=== PATIENT | male | born 1960 | race Caucasian/White ===

== ENCOUNTER 2017-08-27 18:59 | Emergency (ER) | payer BC ==
[2017-08-27 19:17] VITALS: BP 129/91; PULSE 77; TEMP 98.2; BMI 23.1
[2017-08-27] MEDS ORDERED: DIPHTH,PERTUSS(ACELL),TET 0.5 ML DISP.SYRIN IM ONE (20:34)
[2017-08-27] MEDS ORDERED: LIDOCAINE HCL 1%, 10 MG/ML (50 mL VIAL) SQ ONE (20:42)
[2017-08-27] MEDS ORDERED: LIDOCAINE HCL 1%, 10 MG/ML (20ML VIAL) ONE (20:50)
--- NOTE | 2017-08-27 20:51 | PDOC ---
History of Present Illness - General Chief Complaint: Wound Infection Stated Complaint: RIGHT INDEX FINGER INFECTION Time Seen by Provider: 08/27/17 19:26 - History of Present Illness Initial Comments: 08/27/17 20:47 "The patient is a 56 year old male, with a significant past medical history of HLD, [place] s/p cardiac stents (2012) and HTN, who presents to the emergency department with right index finger pain and swelling. He reports that he thought he felt a splinter go into his right index finger 4 days ago. He reports he tried to dig it out with tweezers but did not find it. He subsequently applied neosporin to the area. He notes that 2 days after that he noticed a pressure like feeling on his right index finger and swelling. He denies any drainage from the site. Pt works as a refund specialist. The patient denies chest pain, shortness of breath, headache and dizziness. Denies fever, chills, nausea, vomit, diarrhea and constipation. Allergies: None Past surgical history: Cardiac Stents Social history: No alcohol, tobacco or drug use reported " Past History - Past Medical History Allergies/Adverse Reactions: Allergies Allergy/AdvReac Type Severity Reaction Status Date / Time No Known Allergies Allergy Verified 08/27/17 19:00 Home Medications: Ambulatory Orders Aspirin 81 mg PO DAILY 02/10/13 Metoprolol Succinate [Toprol XL -] 25 mg PO DAILY 02/10/13 Alprazolam [Xanax] 0.25 mg PO PRN PRN 08/27/17 Rosuvastatin Calcium [Crestor] 40 mg PO DAILY 08/27/17 Sulfamethoxazole/Trimethoprim [Bactrim Ds Tablet] 1 each PO BID 7 Days #14 tablet 08/27/17 Cardiac Disorders: Yes (NC) COPD: No HTN: Yes Hypercholesterolemia: Yes - Surgical History Cardiac Surgery: Yes (STENT) - Family Disease History Family Disease History: Heart Disease: Mother - Suicide/Smoking/Psychosocial Hx Smoking Status: No Smoking History: Never smoked Have you smoked in the past 12 months: No Number of Cigarettes Smoked Daily: 0 Information on smoking cessation initiated: No Hx Alcohol Use: Yes (SOCIAL) Drug/Substance Use Hx: No Substance Use Type: Alcohol Hx Substance Use Treatment: No Review of Systems - Review of Systems Comments:: 08/27/17 20:49 "GENERAL/CONSTITUTIONAL: No fever. No weakness. HEAD, EYES, EARS, NOSE AND THROAT: No change in vision. No ear pain or discharge. No sore throat. CARDIOVASCULAR: No chest pain or shortness of breath. RESPIRATORY: No cough, wheezing, or hemoptysis. GASTROINTESTINAL: No nausea, vomiting, diarrhea or constipation. GENITOURINARY: No dysuria, frequency, or change in urination. MUSCULOSKELETAL: No joint or muscle swelling or pain. No neck or back pain. SKIN: (+) Right index finger pain and swelling. No rash NEUROLOGIC: No headache, vertigo, loss of consciousness, or change in strength/ sensation. ENDOCRINE: No increased thirst. No abnormal weight change. HEMATOLOGIC/LYMPHATIC: No anemia, easy bleeding, or history of blood clots. ALLERGIC/IMMUNOLOGIC: No hives or skin allergy." *Physical Exam - Vital Signs Last Vital Signs Temp Pulse Resp BP Pulse Ox 98.2 F 77 16 129/91 98 08/27/17 19:00 08/27/17 19:00 08/27/17 19:00 08/27/17 19:00 08/27/17 19:00 - Physical Exam Comments: 08/27/17 20:49 "GENERAL: Awake, alert, and fully oriented, in no acute distress HEAD: No signs of trauma EYES: PERRLA, EOMI, sclera anicteric, conjunctiva clear ENT: Auricles normal inspection, hearing grossly normal, nares patent, oropharynx clear without exudates. Moist mucosa NECK: Nontender, no stepoffs, Normal ROM, supple, no lymphadenopathy, JVD, or masses LUNGS: Breath sounds equal, clear to auscultation bilaterally. No wheezes, and no crackles HEART: Regular rate and rhythm, normal S1 and S2, no murmurs, rubs or gallops ABDOMEN: Soft, nontender, normoactive bowel sounds. No guarding, no rebound. No masses EXTREMITIES: R index finger with swelling over distal phalanx, small puncture wound over pad of fingertip with no fluctuance, + paronychia over dorsal aspect of finger with no active drainage, no tenderness over flexor tendons, no pain with passive extension or flexion, no sausage digit NEUROLOGICAL: Cranial nerves II through XII intact. 5/5 strength and sensation in all extremities, Normal speech, normal gait SKIN: Warm, Dry, normal turgor, no rashes or lesions noted. " Procedures - Incision and Drainage I&D Site: Right: Other (index finger) Betadine cleansed: Yes Anesthesia: 1% Lidocaine Blade Size: 11 Dressing: Yes Progress: 08/27/17 22:11 R index finger paronychia drained with 3cc of pus expressed ED Treatment Course - RADIOLOGY Radiology Studies Ordered: Category Date Time Status FINGER(S) RIGHT [RAD] Stat Radiology 08/27/17 20:33 Ordered Medical Decision Making - Medical Decision Making 08/27/17 20:50 56 M with R index finger paronychia. Will require I&D. Also possible foreign body. - XR to r/o FB - I&D - Tdap - Abx - F/u ortho hand 08/27/17 22:12 XR with no FB visualized on my read. Paronychia drained, with 3cc of purulent fluid expressed Tdap administered Pt started on Bactrim (has ? history of MRSA in the past) Pt to f/u with hand within 48 hours or return to ER for wound check. I discussed the physical exam findings, ancillary test results and final diagnoses with the patient. I answered all of the patient's questions. The patient was satisfied with the care received and felt comfortable with the discharge plan and treatment plan. The patient agrees to follow up with the primary care physician, ortho, or return to ER within 48-72 hours. *DC/Admit/Observation/Transfer Diagnosis at time of Disposition: Paronychia - Discharge Dispostion Disposition: HOME Condition at time of disposition: Stable - Referrals Referrals: Telly Ownes MD [Staff Physician] - - Patient Instructions Printed Discharge Instructions: DI for Paronychia Additional Instructions: Take the antibiotics as prescribed to treat your finger infection. If you experience worsening redness, pain, swelling, fevers, or any other concerning symptoms, return to the ER immediately. Otherwise follow up with a hand specialist or see your primary doctor within 48-72 hours for a wound check. You can also return to this ER if you cannot get an appointment. - Post Discharge Activity - Attestations Physician Attestion: 08/27/17 22:17 I, Dr. Efrain Marin MD, attest that this document has been prepared under my direction and personally reviewed by me in its entirety. I further attest, that it accurately reflects all work, treatment, procedures and medical decision -making performed by me.
[2017-08-27] MEDS ORDERED: SULFAMETHOXAZOLE/TRIMETHOPRIM 800MG/160MG D.S. TABLET PO ONE (22:14)
[2017-08-27] MEDS ORDERED: SULFAMETHOXAZOLE/TRIMETHOPRIM 800MG/160MG D.S. TABLET ONE (22:16)
== END 2017-08-27 22:22 | disposition home or self-care (01) ==
LOC: FER 18:59
PROC: 0H9FXZZ Drainage of Right Hand Skin, External Approach (ICD-10-PCS; principal; 2017-08-27)
PROC: 3E0234Z Introduction of Serum, Toxoid and Vaccine into Muscle, Percutaneous Approach (ICD-10-PCS; 2017-08-27)
DX: L03.011 Cellulitis of right finger (principal); I10 Essential (primary) hypertension; I25.2 Old myocardial infarction; E78.5 Hyperlipidemia, unspecified; Z95.5 Presence of coronary angioplasty implant and graft; Z79.82 Long term (current) use of aspirin
CPT/HCPCS: 73140-TC-RT; 90715; 99281-25